=== PATIENT | female | born 1955 | race Caucasian/White ===

== ENCOUNTER 2024-07-17 05:39 | Observation (INO) ==
--- NOTE | 2024-07-10 13:07 | Anesthesiology Consultation ---
Date of Service July 10, 2024 Assessment & Plan Chart Review Chart Review: Acceptable Risk for Surgery and Patient NOT seen in Pre Admission Testing Consults Requested none History Surgery Operation Date: 07/17/24 07:00 Proposed Procedures p Robotic Assisted Sacral Colpopexy, - Salvatore Byrne MD s Possible Sling - Salvatore Byrne MD Height/Weight Height: 5 ft 4 in Weight: 78.925 kg Allergies Allergy/AdvReac Type Severity Reaction Status Date / Time shellfish derived AdvReac Unknown VOMITING,DIARRHEA,FLU Unverified 07/07/24 10:21 LIKE [place] Medications Home Medications Medication Instructions Recorded Confirmed Last Taken levothyroxine 100 mcg tablet 100 mcg PO QAM 07/07/24 07/07/24 Unknown Past Medical History Medical History (Updated 07/07/24 @ 09:08 by Steph Fofana, RN) Hx of hyperlipidemia off meds w/ diet and excercise Hypothyroidism Slow to wake up after anesthesia History of hypertension off meds w/ diet and excercise History of sleep apnea mild- no longer uses device, no longer snores Rectocele hx of repair Past Surgical History Surgical History History of hysterectomy Hx of tonsillectomy Hx of appendectomy History of total bilateral knee replacement Social History Smoking Status: Former smoker Do You Dip or Chew Tobacco: No Smoking End Date: quit 1981 Hx Alcohol Use: Yes Alcohol type: wine alcohol intake frequency: holidays/special occasions only Hx Substance Use: No substance use type: does not use
--- NOTE | 2024-07-17 05:40 | History & Physical Report ---
Date of Service July 17, 2024 Assessment & Plan (1) Vaginal vault prolapse, posthysterectomy: Plan: Patient has failed pessary therapy and now desires surgery. We reviewed transvaginal repair (anterior colporrhaphy, sacrospinous ligament supspension) vs robotic sacral colpopexy. I reviewed the risks and benefits of each approach. She prefers robotic sacral colpopexy, removal of ovaries, possible sling, and cystoscopy. We reviewed risks of infection, bleeding, injury, pain, mesh exposure,urinary retention, and incontinence. All questions answered. Informed consent confirmed. Present on Admission?: Yes Admission and Anticipated Discharge Date Admission Date: 07/17/2024 Anticipated date of discharge: 07/18/24 History of Present Illness Chief Complaint: vaginal vault prolapse Primary Care Provider: Chevy Russell Lizzie Rogers is a 68 year old female P 2 here for robotic sacral colpopexy Referred by Lauren Quesada DO. For the past 6 months, Lizzie Rogers complains of a vaginal prolapse that pretty much hangs out all the time. She has sensation of incomplete bladder emptying, frequency, urgency, and urge incontinence a few times a week. She has tried Kegel exercises and pessary therapy which failed to hold the prolapse completely. Urinary: Leakage: urge Has leakage a few times a week Wears pads: yes She has a persistent sense of incomplete bladder emptying. Prior/current treatment include: Kegel exercises UTI: Denies UTI this past year Voiding detail: Daytime frequency: 12 times Urgency yes Nocturia:2-3 times Hesitancy no Straining no Hematuria no Postvoid dribbling no Postvoid urgency yes Manual reduction no Prolapse: She admits a palpable bulge. GI: Bowel habits: normal bowel movement She denies fecal incontinence. Prior/ current treatments include: none Allergies Allergy/AdvReac Type Severity Reaction Status Date / Time shellfish derived AdvReac Unknown VOMITING,DIARRHEA,FLU Verified 07/17/24 06:11 LIKE [facility] Home Medications Medication Instructions Recorded Confirmed Type levothyroxine 100 mcg tablet 100 mcg PO QAM 07/07/24 07/17/24 History Liver Cleanse 2 cap PO DAILY 07/17/24 07/17/24 History Nutritional Yeast 1 tsp PO DAILY 07/17/24 07/17/24 History ashwagandha extract 120 mg capsule 120 mg PO DAILY 07/17/24 07/17/24 History iodine (kelp) 0.15 mg tablet (Kelp) See Rx Instructions .Route .COMPLEX 07/17/24 07/17/24 History selenium 50 mcg tablet 50 mcg PO DAILY 07/17/24 07/17/24 History Past Med/Surg History Problem List Vaginal vault prolapse, posthysterectomy S/P TKR (total knee replacement) (Acute 10/07/13) Medical History Hx of hyperlipidemia off meds w/ diet and excercise Hypothyroidism Slow to wake up after anesthesia History of hypertension off meds w/ diet and excercise History of sleep apnea mild- no longer uses device, no longer snores Rectocele hx of repair Surgical History History of hysterectomy Hx of tonsillectomy Hx of appendectomy History of total bilateral knee replacement Social History Smoking Status: Former smoker Tobacco Type: Cigarettes Smoking End Date: quit 1981; Second Hand Exposure: No; Do You Dip or Chew Tobacco: No; Tobacco Cessation Education Requested by Patient: No Hx Alcohol Use: Yes Alcohol type: wine Hx Substance Use: No Preferred Language: Dominican Communication Ability: Effective Air Sealing Technician Required: No Beliefs That Will Affect Care: None Current Living Situation: Spouse Other Information That Helps Us Care for You: No Feels Safe at Home: Yes Safety Concerns: Feels Safe At This Time Assistive Devices: Glasses Review of Systems Review of Systems: All systems reviewed & are unremarkable except as noted in HPI & below Physical Exam Constitutional: WD/WN, vitals as above Eyes: PERRL, conjunctivae normal, anicteric sclerae ENMT: external ear and nose normal, oropharynx normal Neck: trachea midline, no thyromegaly Respiratory: normal respiratory effort, lungs clear to auscultation Cardiovascular: RRR, no murmur, no edema Gastrointestinal (Abdomen): normal bowel sounds, soft, nontender, no hepatosplenomegaly Musculoskeletal: no cyanosis or clubbing, extremities motor strength 5/5 Skin: no rashes, warm and dry Psychiatric: A+Ox3, euthymic affect Code Status & VTE Plan VTE Prophylaxis Plan VTE Prophylaxis will be ordered: Yes
[2024-07-17] MEDS: LR 15ML/HR IV SCH (06:33)
[2024-07-17] MEDS ORDERED: fentaNYL citrate PF 100 MCG/2 ML VIAL IV PRN (07:02)
[2024-07-17] MEDS ORDERED: ePHEDrine sulfate 50 MG/ML AMP IV PRN (07:02)
[2024-07-17] MEDS ORDERED: ONDANSETRON INJ 2 MG/ML 2 ML VIAL IV PRN ×2 (07:02→10:24)
[2024-07-17] MEDS ORDERED: HYDROmorphone INJ 2 MG/ML SYR/VIAL IV PRN (07:02)
[2024-07-17] MEDS ORDERED: ATROPINE SULFATE 0.1 MG/ML 10ML SYR IV PRN (07:02)
[2024-07-17] MEDS ORDERED: PROMETHAZINE HCL 6.25 MG in SODIUM CHLORIDE 0.9% 50 ML IV PRN (07:02)
[2024-07-17] MEDS ORDERED: MIDAZOLAM HCL 1 MG/ML 2ML VIAL ONE (07:17)
[2024-07-17] MEDS ORDERED: fentaNYL citrate PF 100 MCG/2 ML VIAL ONE ×2 (07:18)
[2024-07-17] MEDS ORDERED: ROCURONIUM BROMIDE 10 MG/ML 5 ML VIAL IV ONE ×2 (07:22→09:13)
[2024-07-17] MEDS: cefOXitin 2,000 MG in DEXTROSE 5 % MINI-B 50 ML IV SCH (07:30)
[2024-07-17] MEDS ORDERED: KETAMINE HCL 10MG/ML SYR ONE (08:07)
[2024-07-17] MEDS ORDERED: DEXAMETHASONE SOD INJ 4 MG/ML VIAL ONE (08:08)
[2024-07-17] MEDS ORDERED: ONDANSETRON INJ 2 MG/ML 2 ML VIAL ONE (08:08)
[2024-07-17] MEDS ORDERED: LIDOCAINE 2% 2 ML VIAL/AMP(20MG/ML) INFIL ONE (08:09)
[2024-07-17] MEDS ORDERED: PROPOFOL IV EMULSION 10 MG/ML 20 ML VIAL IV ONE (08:09)
[2024-07-17] MEDS ORDERED: SUGAMMADEX SODIUM 200 MG/2 ML VIAL IV ONE (08:09)
[2024-07-17] MEDS: BUPIVACAINE 0.5 % 5 MG/1 ML MPF 30ML VIAL ONE (09:22)
[2024-07-17] MEDS: LIDOCAINE 1% LOCAL 20 ML VIAL ONE (09:29)
[2024-07-17] MEDS: PREMARIN VAG CRM 14 APPLN/30 GM TUBE ONE (09:57)
[2024-07-17] MEDS: BUPIVACAINE LIPOSOME 1.3% 266 MG/20 ML VIAL ONE (10:09)
[2024-07-17] MEDS: LIDOCAINE 1%/EPINEPHRINE 1:100,000 50 ML VIAL ONE (10:10)
[2024-07-17] MEDS ORDERED: ACETAMINOPHEN 325 MG TAB PO PRN (10:24)
[2024-07-17] MEDS ORDERED: IBUPROFEN 600 MG TAB PO PRN (10:24)
--- NOTE | 2024-07-17 10:37 | Operative Report ---
Post Operative Report Pre & Post Diagnosis Operation Date: 07/17/24 07:30 Pre-Op Diagnosis: Cystocele, Vaginal Vault Prolapse, Post Hysterectomy, REGINA Post-Op Diagnosis: Cystocele, Vaginal Vault Prolapse, Post Hysterectomy, REGINA I identified the patient and participated in the time-out.: Yes Procedure Operation Date: 07/17/24 07:30 Actual Procedures p Robotic Assisted Sacral Colpopexy with lysis of omental adhesions, bilateral salpingo-oophorectomy, Sling and Cystoscopy(Not Applicable) - Salvatore Byrne MD Surgeon Salvatore Byrne MD [employer]is[employer] Weapons Officer Marli Gunn PA-C Estimated Blood Loss 75 Findings Consistent with Post-Op Diagnosis Vaginal vault prolapse, cystocele, normal atrophic ovaries bilaterally, omental adhesions to the anterior abdominal wall. Normal cystoscopy with excellent efflux of ureters bilaterally. Fluids crystalloid Specimens bilateral tubes and ovaries Drains Armas Catheter Anesthesia Type General Complications none Disposition Accompanied Patient To Recovery: Yes Disposition: Recovery Room Indications symptomatic prolapse and incontinence Description of Procedure The patient is a 69 year old female with vaginal vault prolapse, cystocele, and REGINA. The risks, benefits, complications, treatment options, and expected outcomes were discussed with the patient and/or family in detail. The possibilities of reaction to medication, pulmonary aspiration, bleeding, recurrent infection, the need for additional procedures, failure to diagnose a condition, and creating a complication requiring transfusion or operation were discussed with the patient who freely signed the consent. The patient concurred with the proposed plan, giving informed consent. The patient was taken to the operating and general anesthesia was administered. She was placed in [place] stirrups, prepped and draped in the usual sterile fashion. Time out was performed. A Armas catheter was placed in the bladder for clear urine. A bulb syringe attached to a Hulka tenaculum was placed in the vaginal to elevate the vaginal vault. An 8 mm incision was made in the left upper quadrant and an 8 mm trocar with optiview was advanced through the incision, through the fascia, and into the abdominal cavity without difficulty. Abdomen was insufflated with CO2 gas. Inspection of the entry site and abdomen was free of adhesions however in the midline in the lower abdomen adhesions of the omentum were observed. One 8 mm trocars were placed on the left and two 8 mm trocars were placed on the right under direct visualization. The harmonic scalpel was used to take down the omental adhesions. An 8 mm umbilical trocar was then placed. The patient was placed in moderate Trendelenburg position to allow the small bowel to retract out of the pelvis. The robot was docked. The bladder was sharply dissected off the anterior vaginal wall for 6 cm. The posterior peritoneum and rectum was dissected off the posterior vaginal wall for 8 cm. The sacral promontory, rectum, and right ureter was well visualized. A peritoneal incision was made over the sacrum and extended to the right corner of the vaginal cuff with excellent visualization of the rectum and right ureter. The Y mesh was then secured to the vagina anteriorly and posteriorly with 2-0 Stratafix in a running fashion. The tail end of the Y mesh was secured to the anterior longitudinal ligament over the sacrum just below the sacral promontory with 2 interrupted sutures of CV-2 Gortex. The excess mesh was trimmed and removed. The peritoneum was closed over the mesh with 2-0 Stratafix in a running fashion. Excellent hemostasis was confirmed. The right tube and ovary was elevated and the right IP ligament was vessel sealed and transected. The right tube and ovary was dissected free and sent to pathology. The left tube and ovary was elevated and the left IP ligament was vessel sealed and transected. The left tube and ovary was dissected free and sent to pathology as specimen. Hemostasis was confirmed. The robot was undocked. The trocars were removed under direct visualization. The CO2 gas was allowed to recede. The skin incisions were closed with 4-0 Monocryl in a subcuticular fashion and dressed with surgical glue. The vaginal mucosa was injected with 0.5% lidocaine with epinephrine overlying the mid-urethra. A small incision of 1.5 cm was made at the mid-urethra. The paraurethral tissue was opened bluntly and to the end of the pubic rami where the obturator foramen was located. This was done bilaterally. The Aminta Desara single incision sling was assembled. The needle introducer was placed through the incision and advanced to the left beyond the pubic rami. The needle was then inserted into the left obturator internus muscle. The second needle introducer was placed through the incision, advanced beyond the right pubic rami and into the right obturator internus muscle. The Armas catheter was then removed from the bladder. The urethra and the bladder was scoped. Both were within normal limits. The bladder was filled with 250 ml of irrigation fluid, the scope was removed. Crede maneuver was performed and the sling was appropriately tensioned. When this was completed, the tape had no tension upon it whatsoever. The vaginal incision was reapproximated using 2-0 Vicryl in a running fashion. Cystoscopy was performed with a 17 sami 70 deg cystoscope. Systematic inspection of the bladder dome, trigone, and urethra revealed no lesions and was normal. Excellent efflux of ureters were demonstrated bilaterally. The bladder was drained and the cystoscope was removed. The Armas catheter was placed. Inspection of the vaginal revealed excellent support of the anterior, posterior, and apical compartments. Long acting bupivacaine was infiltrated into the obturator spaces. Topical estrogen cream was applied to the vagina. All sponge, lap, and needle counts were correct. Patient tolerated the procedure well, awakened and transferred to recovery in good condition. I attest to the content of the Intraoperative Record and any orders documented therein. Any exceptions are noted below. No qualified resident was available. Marli Gunn PA-C as a surgical assi stant was necessary to perform the procedure for patient positioning, draping, robot docking, robot instrument exchange, retraction, suction, and wound closure.
[2024-07-17] MEDS: SODIUM CHLORIDE 0.9% 50 ML BAG ONE (10:38)
[2024-07-17] MEDS: PROMETHAZINE HCL INJ 25 MG/ML 1 ML VIAL ONE (10:38)
--- NOTE | 2024-07-17 11:46 | Anesthesiology Progress Note ---
Date of Service July 17, 2024 Anesthesia Post Procedure Vital Signs Vital Signs: Temp Pulse Resp BP Pulse Ox O2 Del Method O2 Flow Rate 07/17/24 11:05 58 L 16 124/57 L 94 Room Air 07/17/24 10:55 36.3 C L 59 L 14 127/62 93 Room Air 07/17/24 10:45 59 L 16 126/63 97 Oxymask 4 07/17/24 10:35 63 16 112/64 97 Oxymask 6 07/17/24 10:25 36.0 C L 59 L 16 110/63 97 Oxymask 6 07/17/24 06:09 36.9 C 68 20 123/71 98 Room Air Transfer of Care Handoff Completed per policy Notes Mental Status: alert / awake / arousable and participated in evaluation Patient Amnestic to Procedure: Yes Nausea / Vomiting: adequately controlled Pain: adequately controlled Airway Patency, RR, SpO2: stable & adequate BP & HR: stable & adequate Hydration State: stable & adequate Anesthetic Complications: no major complications apparent
[2024-07-17] MEDS: oxyCODONE/ACETAMINOPHEN 5mg/325mg TAB PO PRN ×2 (12:03→23:30)
[2024-07-17] MEDS ORDERED: Nursing to Pharmacy Communication SCH (12:45)
[2024-07-18] MEDS: LEVOTHYROXINE SODIUM 100 MCG TABLET PO SCH (06:39)
[2024-07-18 07:57] LABS: Basophils # (auto) 0.05 K/uL (0.00-0.20); Basophils % (auto) 0.7 %; Eosinophils # (auto) 0.13 K/uL (0.00-0.50); Eosinophils % (auto) 1.8 %; Hematocrit (blood only) 35.6 % (37.0-47.0); Immature Granulocytes # (auto) 0.02 K/uL (0.01-0.20); Immature Granulocytes % (auto) 0.3 %; Lymphocytes # (auto) 1.45 K/uL (1.20-3.40); Lymphocytes % (auto) 20.2 %; Mean Corpuscular Hemoglobin 32.1 pg (25.0-34.0); Mean Corpuscular Hgb Conc 33.7 g/dL (32.0-36.0); Mean Corpuscular Volume 95.2 fL (80.0-100.0); Mean Platelet Volume 9.5 fL (9.4-12.4); Monocytes # (auto) 0.62 K/uL (0.11-0.59); Monocytes % (auto) 8.6 %; Neutrophils # (auto) 4.91 K/uL (1.40-6.50); Neutrophils % (auto) 68.4 %; Platelet Count 167 K/uL (130-400); RDW Coefficient of Variation 13.1 % (11.5-14.5); RDW Standard Deviation 45.4 fL (36.4-46.3); Red Blood Count 3.74 M/uL (4.20-5.40); White Blood Count 7.18 K/ul (4.8-10.8)
[2024-07-18 08:16] LABS: BUN Creatinine Ratio 17.3 (10-20); Calcium 8.3 mg/dl (8.6-10.3); Creatinine Clr Calc Pharmacy 73.3 ml/min; Potassium 3.6 mmol/L (3.5-5.1)
--- NOTE | 2024-07-18 08:42 | Gynecologic Progress Note ---
Date of Service July 18, 2024 Assessment & Plan (1) Vaginal vault prolapse, posthysterectomy: Plan: POD#1 s/p robotic sacral colpopexy, BSO, sling, and cystoscopy Recovering and feeling well. No complaints. Hemodynamically stable, normal labs. Voiding trial, then discharge home Post op instructions, follow up, and all questions answered. Present on Admission?: Yes Admission and Anticipated Discharge Date Admission Date: July 17, 2024 Anticipated date of discharge: 07/18/24 Subjective Feeling well, pain well controlled. Denies SOB,CP, Nausea, or lightheadedness Review of Systems Review of Systems: All systems reviewed & are unremarkable except as noted in HPI & below Physical Exam Constitutional: WD/WN, vitals as above Eyes: PERRL, conjunctivae normal, anicteric sclerae ENMT: external ear and nose normal, oropharynx normal Neck: trachea midline, no thyromegaly Respiratory: normal respiratory effort, lungs clear to auscultation Cardiovascular: RRR, no murmur, no edema Gastrointestinal (Abdomen): normal bowel sounds, soft, nontender, no hepatosplenomegaly Musculoskeletal: no cyanosis or clubbing, extremities motor strength 5/5 Skin: no rashes, warm and dry Psychiatric: A+Ox3, euthymic affect Results & Data Vital Signs (Past 12 Hours) Vital Signs Temp Pulse Resp BP Pulse Ox O2 Del Method O2 Flow Rate 07/18/24 03:35 36.8 C 77 16 108/55 L 100 Nasal Cannula 1 07/17/24 23:15 36.8 C 84 16 131/58 L 95 Nasal Cannula 1
--- NOTE | 2024-07-18 08:49 | Discharge Summary ---
Date of Service July 18, 2024 Admission HPI Per Admitting Provider Lizzie Rogers is a 68 year old female P 2 here for robotic sacral colpopexy Referred by Lauren Quesada DO. For the past 6 months, Lizzie Rogers complains of a vaginal prolapse that pretty much hangs out all the time. She has sensation of incomplete bladder emptying, frequency, urgency, and urge incontinence a few times a week. She has tried Kegel exercises and pessary therapy which failed to hold the prolapse completely. Urinary: Leakage: urge Has leakage a few times a week Wears pads: yes She has a persistent sense of incomplete bladder emptying. Prior/current treatment include: Kegel exercises UTI: Denies UTI this past year Voiding detail: Daytime frequency: 12 times Urgency yes Nocturia:2-3 times Hesitancy no Straining no Hematuria no Postvoid dribbling no Postvoid urgency yes Manual reduction no Prolapse: She admits a palpable bulge. GI: Bowel habits: normal bowel movement She denies fecal incontinence. Prior/ current treatments include: none Admission Exam (Per Admitting) Constitutional WD/WN, vitals as above Eyes PERRL, conjunctivae normal, anicteric sclerae ENMT external ear and nose normal, oropharynx normal Neck trachea midline, no thyromegaly Respiratory normal respiratory effort, lungs clear to auscultation Cardiovascular RRR, no murmur, no edema Gastrointestinal (Abdomen) normal bowel sounds, soft, nontender, no hepatosplenomegaly Musculoskeletal no cyanosis or clubbing, extremities motor strength 5/5 Skin no rashes, warm and dry Psychiatric A+Ox3, euthymic affect Discharge Data Procedures Performed Operation Date: 07/17/24 07:30 Actual Procedures p Robotic Assisted Sacral Colpopexy with Sling and Cystoscopy(Not Applicable) - Salvatore Byrne MD Hospital Course (1) Vaginal vault prolapse, posthysterectomy: POD#1 s/p robotic sacral colpopexy, BSO, sling, and cystoscopy Recovering and feeling well. No complaints. Hemodynamically stable, normal labs. Voiding trial, then discharge home Post op instructions, follow up, and all questions answered.
[2024-07-18] MEDS ORDERED: NON-FORMULARY MEDICATION (Selenium 50 mcg Tablet) PO SCH (09:00)
[2024-07-18 11:42] VITALS: BP 122/62; RESP 18; TEMP 99; O2SAT 96
[2024-07-18 11:51] VITALS: PULSE 58
== END 2024-07-18 13:20 | disposition home or self-care (01) ==
LOC: 4E1 05:39 → ASU 05:39